=== PATIENT | male | born 1945 | race Caucasian/White ===

== ENCOUNTER 2019-03-30 16:03 | Inpatient (IN) | payer MEDICARE, OTHER ==
[2019-03-30] MEDS ORDERED: CLOPIDOGREL75 MG PO (18:31)
[2019-03-30] MEDS ORDERED: ALDACTONE25 M1 PO (18:32)
[2019-03-30] MEDS ORDERED: TOPROL XL25 MG PO (18:32)
[2019-03-30] MEDS ORDERED: KENALOG 0.1%80 GM T (18:33)
[2019-03-30] MEDS ORDERED: LIPITOR40 MG PO (18:34)
[2019-03-30] MEDS ORDERED: COMBIVENT RESPIM4 GM INH (18:34)
[2019-03-30] MEDS ORDERED: ASPIRIN CHEWABL81 MG PO (18:34)
[2019-03-30] MEDS ORDERED: CETIRIZINE10 MG PO (18:35)
[2019-03-30] MEDS ORDERED: CYCLOBENZAPRINE10 MG PO (18:36)
[2019-03-30] MEDS ORDERED: DOXEPIN HCL100 MG PO (18:36)
[2019-03-30] MEDS ORDERED: ENALAPRIL20 MG PO (18:37)
[2019-03-30] MEDS ORDERED: ORPHENADRINE C100 M1 PO (18:38)
[2019-03-30] MEDS ORDERED: ZETIA10 MG PO (18:38)
[2019-03-30] MEDS ORDERED: SENNA8.6 MG PO (18:39)
[2019-03-30] MEDS ORDERED: RANITIDINE HCL150 M1 PO (18:39)
[2019-03-30] MEDS ORDERED: K2 PLUS D3 TAB1 EACH PO (18:40)
[2019-03-30] MEDS ORDERED: MULTIVITAMINS1 EAC5 PO (18:40)
[2019-03-30 21:07] VITALS: BP 184/81
[2019-03-30 22:00] VITALS: BP 184/81
--- NOTE | 2019-03-30 22:00 | NUR ---
DR ASHER NOTFIED OF ADMISSION. A FEW MEDICATIONS STARTED TONIGHT TO ASSIST CLIENT
--- NOTE | 2019-03-30 22:15 | NUR ---
OLIVIA STRINGER a 74 year old M admitted via stretcher from the OTHER as a voluntary admission. Arrived on unit at 2054. ALLERGIES: ADHESIVE TAPE. Vital signs are: [id number] [phone]/81. The client signed the following forms with stated understanding: Authorization For The Release of Medical Information, Clothing List, Consent to Voluntary Admission and Hospitalization, Consent and Release Forms/Receipt of Rights, Acknowledgement of Advance Directive Information, Behavioral Health Consent Form, and Informed Consent of Medications. Admitted under the services of Dr. DAPHNE THOMAS,[facility]. A search was conducted and hazardous articles were removed. Client was oriented to the unit. EUGENIO JARAMILLO
--- NOTE | 2019-03-31 05:56 | NUR ---
PT HAS SLEPT PAST 0115.
[2019-03-31 06:30] LABS: BASO # 0.1 10*3/uL (0.0-0.1); EOS # 0.5 10*3/uL (0.0-0.4); HEMATOCRIT 40.5 % (42.0-52.0); HEMOGLOBIN 13.4 g/dl (14.0-18.0); LYMPH # 1.5 10*3/uL (1.3-4.4); LYMPH % 14.1 % (27.0-41.0); MEAN CELL VOLUME 93.1 fl (80.0-94.0); MEAN CORPUSCULAR HGB 30.8 pg (27.0-31.0); MEAN CORPUSCULAR HGB CONC 33.1 g/dl (33.0-37.0); MEAN PLATELET VOLUME 9.5 fl (9.6-12.3); MONO % 9.9 % (3.0-9.0); NEUT # 7.3 10*3/uL (2.3-7.9); NEUT % 69.6 % (47.0-73.0); PLATELET COUNT AUTOMATED 184 10*3/uL (130-400); RED BLOOD COUNT 4.35 10*6/uL (4.50-5.90); RED CELL DISTRI WIDTH 13.2 % (0-14.5); WHITE BLOOD COUNT 10.5 10*3/uL (4.8-10.8)
[2019-03-31 07:01] LABS: ALBUMIN 3.3 gm/dl (3.1-4.5); ALKALINE PHOSPHATASE 70 U/L (45-117); BUN 15 mg/dl (7-24); CHLORIDE 107 mmol/L (98-107); CHOLESTEROL 144 mg/dL (<200); CREATININE 1.09 mg/dL (0.70-1.30); HDL CHOLESTEROL 58 mg/dl (40-60); LDL CHOLESTEROL 58 mg/dL (9-159); POTASSIUM 3.4 mmol/L (3.5-5.1); SGOT/AST 16 IU/L (3-35); SGPT/ALT 24 U/L (12-78); SODIUM 143 mmol/L (136-145); TOTAL PROTEIN 6.5 gm/dL (6.4-8.2); TRIGLYCERIDES 139 mg/dl (<150); VLDL CHOLESTEROL 28 mg/dL (6-40)
[2019-03-31 07:40] VITALS: BP 155/76
[2019-03-31 08:24] LABS: VITAMIN D, 25-HYDROXY 38.4 ng/mL (30-100)
--- NOTE | 2019-03-31 08:45 | NUR ---
kayley garcia np, made aware of medical meds needing reviewed.
--- NOTE | 2019-03-31 09:50 | NUR ---
PHYSICAL THERAPY Screen received spoke with nurse Ann, who states pt is up ambulating throughout the unit and having no balance/safety/functional issues at this time. Please consult PT if pt has a change in status or decline from present functional status, thank you. Britt Pickett PT
--- NOTE | 2019-03-31 11:52 | NUR ---
ASSESSMENT SPENT TIME ASSESSING PT. PT WAS COOPERATIVE AND CALM. PT ENJOYS READING AND WORDSEARCHS AND WILL BE ENCOURAGED TO ATTEND GROUP THERAPY.
--- NOTE | 2019-03-31 15:42 | NUR ---
PM GROUP PT ATTENDED AFTERNOON GROUP THERAPY AND PARTICIPATED BY SOCIALIZING WITH A PEER WHOM HE KNEW FROM WORK. PT EXPRESSED NO SUICIDAL IDEATIONS WHILE IN GROUP.
--- NOTE | 2019-03-31 15:47 | NUR ---
Nursing screen received and chart reviewed. Per discussion with nursing, patient is independently ambulating throughout U and is independent with self-care. No further OT indicated at this time. Thank you. Loly Miller, OTR/L
[2019-03-31 19:52] VITALS: BP 160/86
--- NOTE | 2019-03-31 20:50 | NUR ---
EVENING/LEISURE SKILLS PT IN ATTENDANCE BUT CHOSE NOT TO PARTICIPATE IN ANY ACTIVITY. AT TIMES THIS STAFF SAW PT ROLLING EYES AT THIS STAFF AND ACTIVITY'S OFFERED. THIS STAFF OFFERED ALTERNATE ACTIVITY BUT PT CHOSE NOT TO PARTICIPATE. PT ATE SNACK AND WENT TO LAY DOWN. PT WILL CONTINUE TO BE ENCOURAGED TO ATTEND AND PARTICIPATE IN FUTURE GROUP SESSIONS TO BEST OF PT ABILITY.
--- NOTE | 2019-04-01 03:28 | NUR ---
P: SUICIDAL IDEATIONS I: SPOKE WITH PT THIS EVENING IN REFERENCE TO THOUGHT PROCESS AND WHY HE CONSIDERED IT AN OPTION. DISCUSED WITH PT HOW AT A YOUNG AGE HE WAS EXPECTED TO BE WILLING TO FOR HIS COUNTRY, THAT LEAVES MANY VETERANS VULNERABLE LATER IN LIFE WHEN CONTROL OF THEIR SITUATION IS LOST. ENCOURAGED PT TO REVIEW LIFE AND REALIZE HE IS NO LONGER EXPENDABLE, THAT HIS AND FAMILY NEED AND WANT HIM TO BE THERE. R: PT STATED HE IS FRUSTRATED NOONE LISTENS TO HIM BECAUSE HE DOES GET CONFUSED SOMETIMES, PT STATED THAT HE JUST WANTS TO SELL THE HOUSE TO THE NEIGHBOR AND GET OUT. STATES HE IS NO LONGER HAVING NEGATIVE THOUGHTS AND IT WAS JUST BECAUSE HE WAS MAD P: ENCOURAGE PT TO TALK TO STAFF, CONTRACT FOR SAFETY, EDUCATE ON MEDICATIONS, COPING SKILLS, PROBLEMS SOLVING. PT READING IN HIS ROOM THIS EVENING, PLEASANT COOPERATIVE, MEDICATION COMPLIANT, NO SI/HI OR DELUSIONS PRESENT
[2019-04-01 07:04] LABS: BUN 18 mg/dl (7-24); CHLORIDE 106 mmol/L (98-107); CREATININE 0.96 mg/dL (0.70-1.30); POTASSIUM 3.3 mmol/L (3.5-5.1); SODIUM 141 mmol/L (136-145)
--- NOTE | 2019-04-01 08:00 | NUR ---
Treatment Plan meeting was held with Dr. Herring, DANYEL Alston, RN, AT, PUMP SERVICER HELPER-S and Logistics Program Manager in attendance. Plan for discharge Next week. Pt. came from Home and will return home at discharge.
[2019-04-01 08:19] VITALS: BP 163/86
--- NOTE | 2019-04-01 11:48 | NUR ---
AM GROUP PT WAS PRESENT AT THE START OF GROUP THERAPY BUT BEGAN TO LEAVE SOON I BEGAN. PT WAS ENCOURAGED TO STAY BUT CHOSE TO LEAVE. PT DID NOT RETURN.
--- NOTE | 2019-04-01 12:04 | NUR ---
Met with pt individually this AM. Explored pt's self-percetion of the power he has over his life and his home situation. Currently, pt feels powerless to make changes to his home life. He did voice some positives about his nephew living with him. Pt did share that he has always been "easy going" and that he feels that it is just easier to go along with what his wants. Asked pt to explain what he believes would happen if he demanded that his nephew and [id number] move out from his home. Pt stated that he knew his would cry and that he doesn't want to do that. When asked what changes pt would make if he had the power to do so in his life, pt responded, "Simple things. I want power over the washer and dryer. He (nephew) leaves clothes in the washer and dryer and then goes away for a day. I want to do my laundry when I want to." Discussed that one cannot control another but that one does have the power over reacting to other's behaviors. Discussed ways in which pt can react differently to his current life situation. Discussed unhealthy vs healthy ways in which to cope with life. Began discussing healthy coping skills. Discussed removing the guns from pt's home. Pt voiced understanding. Pt stated that he planned on selling one of them.
--- NOTE | 2019-04-01 12:51 | NUR ---
PT PLEASANT AND COOPERATIVE WITH CARE, GOOD APPETITE, COMPLIANT WITH MEDICATIONS PT DENIES SI AT THIS TIME, BUT DOES STATE THAT HES NOT HAVING SI BECAUSE HE IS HERE AND AWAY FROM HIS AND HER NEPHEW AT THIS TIME, HE STATES THAT HES UNSURE IF HIS SI WILL RETURN WHEN HE RETURNS HOMES AND IS AROUND HIS WIFES NEPHEW, BUT DOES BELIEVE "THEY'LL PROBABLY RETURN UNLESS HE LEAVES".
--- NOTE | 2019-04-01 15:52 | NUR ---
PM GROUP PT DID NOT ATTEND AFTERNOON GROUP THERAPY. PT STAYED IN HIS ROOM
[2019-04-01 20:05] VITALS: BP 150/82
--- NOTE | 2019-04-01 20:38 | NUR ---
EVENING GROUP/LEISURE SKILLS PT IN ATTENDANCE AND PARTICIPATED BY WATCHING MOVIE AND SOCIALIZING WITH PEERS. PT PLEASANT WITH NO S.I. EXPRESSED AT THIS TIME. PT WILL CONTINUE TO ATTEND AND PARTICIPATE IN FUTURE [facility] SESSIONS TO BEST OF ABILITY.
--- NOTE | 2019-04-02 01:01 | NUR ---
NO ADVERSE BEHAVIORS NOTED. PT ALERT AND ORIENTED X4. PT CALM, COOPERATIVE, AND INTERACTIVE. MEDICATION COMPLIANT WITHOUT DIFFICULTY AFTER REVIEW. PT DENIES SI/HI, HALLUCINATIONS, OR PAIN. NO PARANOIA/DELUSIONS NOTED. NO PHYSICAL COMPLAINTS VOICED. PT AMBULATORY WITH A STEADY GAIT. INDEPENDENT IN ADLS, CONTINENT OF BOWEL AND BLADDER. PT RESTING QUIETLY AT THIS TIME, RESPIRATIONS EASY AND REGULAR, NO SIGNS OR SYMPTOMS OF DISTRESS NOTED.
--- NOTE | 2019-04-02 03:01 | NUR ---
24 HOUR CHART CHECK COMPLETED.
--- NOTE | 2019-04-02 05:36 | NUR ---
PATIENT OBSERVED ON Q 15 MIN CHECKS TO HAVE SLEPT APPROX 7 HOURS UNINTERRUPTED THROUGHOUT THEN NIGHT. NO SIGNS OR SYMPTOMS OF DISTRESS NOTED.
--- NOTE | 2019-04-02 08:00 | NUR ---
Treatment plan meeting was held with Dr. Herring, DANYEL Alston, RN, AT, LIQUID HYDROGEN PLANT OPERATOR-S and Vegetable I Farmworker. Plan for discharge Sunday with return home with Follow up arranged.
[2019-04-02 08:06] VITALS: BP 125/86
--- NOTE | 2019-04-02 09:04 | NUR ---
PATIENT COMPLAINING OF LOWER BACK PAIN 07/12. PRN TYLENOL 650MG AND FLEXERIL 10MG GIVEN PO.
--- NOTE | 2019-04-02 10:04 | NUR ---
NO FURTHER COMPLAINTS OF PAIN, PRN TYLENOL AND FLEXERIL EFFECTIVE.
--- NOTE | 2019-04-02 10:05 | NUR ---
P: DEPRESSED MOOD, STATES HE FEELS "SAD" I: ONE ON ONE FOR EMOTIONAL SUPPORT PROVIDED R: EFFECTIVE. PATIENT IS ALERT AND ORIENTED TO PERSON, PLACE, TIME AND SITUATION; ABLE TO VOICE NEEDS. MOOD IS DEPRESSED. DENIES ANY HALLUCINATIONS, DELUSIONS, HI/SI OR PAIN. MEDICATION COMPLAINT WITH EDUCATION PROVIDED. Q 15 MINTUE SAFETY CHECKS MAINTIANED. PATIENT ASSESSED FOR RASH ON BACK/NECK FROM WOUND NURSE AND MILY MCCONNELL CNP. NEW ORDERS IN PLACE. PATIENT IS INDEPENDENT WITH ACTIVITIES OF DAILY LIVING, CONTINENT OF BOWEL AND BLADDER. SET UP FOR MEALS, INTAKES ARE GOOD WITH ADEQUATE FLUIDS. INTERACTIVE WITH STAFF AND OTHER PATIENTS. PARTICIPATES IN GROUP SESSSION. P: CONTINUE TO MONITOR FOR SUCIDIAL IDEATION AND MOOD. PROVIDE ONE ON ONE FOR EMOTIONAL SUPPORT, CONTRACT FOR SAFETY NEEDED.
--- NOTE | 2019-04-02 11:48 | NUR ---
AM GROUP/EXERCISE AND BRAIN GAMES PT ATTENDED MORNING GROUP THERAPY AND PARTICIPATED IN ALL ACTIVITIES. PT WAS QUIET BUT ENGAGED. PT EXPRESSED NO SUICIDAL IDEATIONS WHILE IN GROUP.
--- NOTE | 2019-04-02 12:19 | NUR ---
PRN BENADRYL 25MG GIVEN PO FOR COMPLAINTS OF BACK ITCHING.
--- NOTE | 2019-04-02 15:04 | NUR ---
Spoke with pt's Joy by phone. Joy shared that she and pt have not have a good marriage for over 20 years. Joy states that they basically tolerate each other and live apart in the same house. Discussed the guns that pt has in the home and requested that the guns be removed from the house. Joy is in agreement of this and stated that she will speak to her sister about taking the guns to her house. Joy's perception of Jaden, her nephew who resides in the home, is that he is very helpful by cooking, cleaning, and doing the yardwork. Joy stated that if Jaden did not live with them, she would probably not be able to remain at home due to her own physical limitations. Joy also stated that she believes that pt has never healed from his experiences in [place] and that contributes to their home situation.
--- NOTE | 2019-04-02 15:44 | NUR ---
PM GROUP/WATERCOLORS AND MUSIC PT ATTENDED AFTERNOON GROUP THERAPY AND PARTICIPATED IN ALL ACTIVITIES. PT WAS TALKATIVE BUT ON TASK. PT EXPRESSED NO SUICIDAL IDEATIONS WHILE IN GROUP.
[2019-04-02 19:45] VITALS: BP 151/63
--- NOTE | 2019-04-02 20:16 | NUR ---
24 HR chart check completed.
--- NOTE | 2019-04-02 22:17 | NUR ---
PT RESTED IN BED THIS EVENING & SLEPT UNTIL 2100. EASILY AWAKENED. COMPLIANT WITH ALL MEDICATIONS. ALERT & ORIENTED X 4. STATED HE IS FEELING BETTER, DENIES SUICIDAL FEELINGS. AMBULATES INDEPENDENTLY. STABLE MOOD. REFUSED SNACK THIS EVENING. CONTINUE TO MONITOR & ASSIST WHEN NEEDED.
--- NOTE | 2019-04-03 05:37 | NUR ---
SLEPT PAST 2229
[2019-04-03 07:49] VITALS: BP 137/82
--- NOTE | 2019-04-03 08:00 | NUR ---
Treatment Plan meeting was held with Dr. Herring RN, AT and Oracle Consultant in attendance. Plan for discharge Sunday. Pt. will return home at discharge.
--- NOTE | 2019-04-03 08:00 | NUR ---
Patient in dining room sitting quietly with no c/o discomfort. Respirations easy and regular. Vital signs stable. No overt distress. VASHTI SANFORD
--- NOTE | 2019-04-03 11:51 | NUR ---
AM GROUP PT DID NOT ATTEND MORNING GROUP THERAPY. PT WAS IN HIS ROOM RESTING.
--- NOTE | 2019-04-03 14:30 | NUR ---
DR. Jackie WICK AND TEAM ON FLOOR TO SEE PT AT THIS TIME.
--- NOTE | 2019-04-03 15:13 | NUR ---
PT STATES HE WAS SAD THIS MORNING. PT ENCOURAGED TO ELABORATE ON HIS FEELINGS. PROVIDED WITH EMOTIONAL SUPPORT. PT STATES "WELL THERE WAS THIS ONE STAFF MEMBER THAT WAS HERE, AND HE JUMPED UP AND DOWN AND MADE THE FLOOR VIBRATE. IT THREW MY BACK OUT. HE IS A HEAVY WALKER TOO". PT PRESENTED WITH REALITY AND PROVIDED WITH EDUCATION. ENCOURAGED TO MOVE SELF. WILL CONTINUE TO PRESENT REALITY. WILL CONTINUE TO ENCOURAGE PT TO VERBALIZE THOUGHT PROCESSES. WILL ENCOURAGE GROUP PARTICIPATION FOR SOCIALIZATION AND SUPPORT. Q15 MIN MONITORING FOR SAFETY.
--- NOTE | 2019-04-03 15:42 | NUR ---
PM GROUP PT DID NOT ATTEND AFTERNOON GROUP THERAPY. PT STAYED IN HIS ROOM NAPPING
[2019-04-03 19:57] VITALS: BP 127/80
--- NOTE | 2019-04-03 23:49 | NUR ---
P-ISOLATIVE I-REDIRECTION WITH 1:1 THERAPEUTIC INTERVENTIONS AND PRESENT REALTIY. EDUCATE AND ENCOURAGE MEDICATION COMPLIANCE R-PATIENT MEDICATION COMPLIANT WITH HS MEDICATIONS. PATIENT PROVIDED NOURISHMENT AT HS AND PROVIDED FLUIDS. PATIENT ISOLATIVE TO ROOM THIS SHIFT WITH LIMITED INTERACTION WITH PEERS. PATIENT AMBULATING ON UNIT WITH STEADY GAIT. PATIENT WITH NO HALLUCINATIONS OR DELUSIONS. PATIENT WITH NO SUICIDAL OR HOMICIDAL IDEATIONS. P-CONTINUE TO ENCOURAGE MEDICATION COMPLAINCE, CONTINUE TO PRESENT REALITY, ENCOURAGE GROUP THERAPY WHILE AWAKE
--- NOTE | 2019-04-04 06:04 | NUR ---
PATIENT SLEPT 8 HOURS OF INTERRUPTED SLEEP THROUGHOUT SHIFT. Q 15 MINUTE CHECKS MAINTAINED. 24 HR chart check completed.
[2019-04-04 07:42] VITALS: BP 152/84
--- NOTE | 2019-04-04 10:32 | NUR ---
PT REQUESTING FLEXERIL FOR BACK PAIN. PRN FLEXERIL 10MG ADMINISTERED AT THIS TIME PER PRN ORDER.
--- NOTE | 2019-04-04 11:45 | NUR ---
AM GROUP/BEADING PT DID NOT ATTEND MORNING GROUP THERAPY. PT STAYED IN HIS ROOM
--- NOTE | 2019-04-04 13:12 | NUR ---
PT CONTINUES TO REPORT NO BM SINCE 03/30. PRN MILK OF MAGNESIA GIVEN PER ORDER. BOWEL SOUNDS ACTIVE X4. NO TENDERNESS OR GUARDING UPON PALPATION. ABDOMEN SOFT, NONDISTENDED. PT DOES STATE PRN FLEXERIL SOMEWHAT EFFECTIVE AT THIS TIME.
--- NOTE | 2019-04-04 14:18 | NUR ---
P: ISOLATIVE AND WITHDRAWN; PATIENT SPENDING MOER TIME IN BEDROOM. I: ONE ON ONE FOR EMTTIONAL SUPPORT, ENCOURAGE PATIENT TO ATTEND GROUP SESSION. R: PATIENT INTERACTIVE [facility] STAFF; PATIENT IS ALERT AND ORIENTED TO PERSON, PLACE, TIME AND SITUATION; ABLE TO VOICE NEEDS. MOOD DEPRESSED. DENIES ANY HALLUCINATIONS, DELUSIONS, HI/SI OR PAIN. MEDICATION COMPLAINT. Q 15 MINUTE SAFETY CHECKS MAINTAINED. INDEPENDENT WITH ACTIVITIES OF DAILY LIVING, CONTINENT OF BOWEL AND BLADDER. SET UP FOR MEALS, INTAKES ARE GOOD WITH ADEQUATE FLUIDS. AMBULATORY WITH STEADY GAIT. P: CONTINUE TO MONITOR FOR SUICIDAL IDEATIONS AND MOOD. PROVIDE ONE ON ONE FOR EMOTIONAL SUPPORT, ENCOURAGE PATIENT TO ATTEND GROUP SESSION, CONTRACT FOR SAFETY NEEDED.
--- NOTE | 2019-04-04 15:48 | NUR ---
PM GROUP/MOVIE PT CHOSE NOT TO ATTEND AFTERNOON GROUP THERAPY. PT STAYED IN HIS ROOM
[2019-04-04 19:09] VITALS: BP 134/73
--- NOTE | 2019-04-05 00:13 | NUR ---
P- ISOLATIVE TO ROOM, PT IN BED AT START OF SHIFT THIS DATE, WILL INTERACT WITH STAFF, HOWEVER; MINIMAL PEER INTERACTIONS NOTED. DENIES FEELING DEPRESSED. DENIES SUICIDAL IDEATIONS. I- ORIENTATION, MOOD AND BEHAVIOR ASSESSED. ASSESSED PT FOR SI/HI, INTENT OR PLAN. ASSESSED PT FOR S/S HALLUCINATIONS, PARANOIA AND/OR DELUSIONS. HS MEDICATIONS GIVEN ORDERED. FALL RISK PRECAUTIONS MAINTAINED. REST ENCOURAGED. R- PT IS ALERT AND ORIENTED X4. PT IN BED AT START OF SHIFT, UPON APPROACH FOR HS MED PASS PT IS LYING IN BED AWAKE. ISOLATIVE TO ROOM. MOOD STABLE, PT DENIES FEELING DEPRESSED. AFFECT APPROPRIATE. PT DENIES SI/HI, INTENT OR PLAN. PT DENIES HALLUCINATIONS, NO RESPONSE TO INTERNAL STIMULI NOTED. NO PARANOIA OR DELUSIONS NOTED. PT NOTED TO BE SLEEPING QUIETLY IN BED WITH EYES CLOSED SINCE APPROXIMATELY 9PM. RESPS EASY AND EVEN ON ROOM AIR. NO DISTRESS NOTED. P- PLAN TO CONTINUE CURRENT TX, CONTINUE TO MONITOR MOOD AND BEHAVIORS, PROVIDE APPROPRIATE REORIENTATION, REDIRECTION AND 1:1 NEEDED.
[2019-04-05 07:24] VITALS: BP 129/43
--- NOTE | 2019-04-05 11:35 | NUR ---
MILY MCCONNELL STUDIO SALES ASSOCIATE ON UNIT TO ASSESS PT, UPDATE PROVIDED.
--- NOTE | 2019-04-05 12:01 | NUR ---
AM GROUP/EXERCISE/MUSIC/LEISURE PT IN ATTENDANCE AND PARTICIPATED IN AL;L GROUP ACTIVITY. PT PLEASANT AND ON TASK WITH NO S.I. EXPRESSED AT THIS TIME. PT WILL CONTINUE TO ATTEND AND PARTICIPATE IN FUTURE GROUP SESSIONS TO BEST OF PT ABILITY.
--- NOTE | 2019-04-05 12:38 | NUR ---
PT C/O BACK PAIN 09/11, PT MEDICATED WITH FLEXERIL PER ORDERS. WILL CONTINUE TO MONITOR.
--- NOTE | 2019-04-05 13:30 | NUR ---
WHEN ASKED IF THE MEDICATION HELPED HIS BACK PAIN PT STATED "IT IS HELPING A LITTLE, WHEN IM AT HOME I USUALLY LAY DOWN" PT SHOWERED AND THEN WENT AND LAID DOWN. WILL CONTIUE TO MONITOR.
--- NOTE | 2019-04-05 15:22 | NUR ---
P: PT ISOALTIVE TO ROOM AND SELF. PT WILL INTERACT WITH STAFF, NO INTERACTION NOTED WITH PEERS. PT REFUSED TO PARTICIPATE IN AFTERNOON GROUP. PT MOOD IS DEPRESSED. PT IRRITABLE WITH STAFF AT TIMES. I: PROVIDE EMOTIONAL SUPPORT AND 1:1 FOR PT TO VOICE FEELINGS, ENCOURAGE GROUP PARTICIPATION AND SOCIALIZATION R: PT ALERT TO PERSON, PLACE, TIME AND SITUATION. PT MED COMPLIANT WITHOUT DIFFICULTY, MED EDUCATION PROVIDED. PT CALM, MOOD REMAINS DEPRESSED. PT CONTINUES TO REFUSE TO PARTICIPATE IN AFTERNOON GROUP. NO HALLUCINATIONS OR DELUSIONS NOTED. PT DENIES ANY SUICIDAL THOUGHTS AT THIS TIME. PT AMBULATORY THROUGHOUT UNIT, GAIT STEADY. PT CONTINENT OF BOWEL AND BLADDER. PT SHOWERED THIS SHIFT. P: MONITOR PT BEHAVIORS ON Q15 MIN SAFETY CHECKS, ENCOURAGE MED COMPLIANCE AND PROVIDE MED EDUCATION, PROVIDE EMOTIONAL SUPPORT AND 1:1 FOR PT TO VOICE FEELINGS, ENCOURAGE GROUP PARTICIPATION AND SOCIALIZATION.
--- NOTE | 2019-04-05 16:00 | NUR ---
PM GROUP/MOVIE/LEISURE PT IN SHOWER START OF GROUP. PT DID NOT END UP COMING DOWN TO GROUP AT THIS TIME. PT WILL CONTINUE TO BE ENCOURAGED TO ATTEND AN DPARTICIPATE IN FUTURE GROUP SESSIONS TO BEST OF PT ABILITY.
[2019-04-05 20:00] VITALS: BP 133/66
--- NOTE | 2019-04-05 22:29 | NUR ---
P-ISOLATIVE I-REDIRECTION WITH 1:1 THERAPEUTIC INTERVENTIONS AND PRESENT REALTIY. EDUCATE AND ENCOURAGE MEDICATION COMPLIANCE R-PATIENT MEDICATION COMPLIANT WITH HS MEDICATIONS. PATIENT PROVIDED NOURISHMENT AT HS AND PROVIDED FLUIDS. PATIENT ISOLATIVE IN DINING AREA WITH LIMITED INTERACTION WITH PEERS. PATIENT AMBULATING ON UNIT WITH STEADY GAIT. PATIENT WITH NO HALLUCINATIONS OR DELUSIONS. PATIENT WITH NO SUICIDAL OR HOMICIDAL IDEATIONS. P-CONTINUE TO ENCOURAGE MEDICATION COMPLAINCE, CONTINUE TO PRESENT REALITY, ENCOURAGE GROUP THERAPY WHILE AWAKE
--- NOTE | 2019-04-06 06:16 | NUR ---
PATIENT SLEPT 8 HOURS OF UNTERRUPTED SLEEP THROUGHOUT SHIFT. Q 15 MINUTE CHECKS MAINTAINED. 24 HR chart check completed.
[2019-04-06 07:53] VITALS: BP 123/60
--- NOTE | 2019-04-06 08:24 | NUR ---
PT C/O BACK PAIN AND SORENESS, PT MEDICATED WITH TYLENOL 650 MG AND FLEXERIL PER ORDERS. WILL CONTINUE TO MONITOR.
--- NOTE | 2019-04-06 09:34 | NUR ---
MILY MCCONNELL RAILROAD SIGNAL AND SWITCH OPERATOR ON UNIT TO ASSESS PT, UPDATE PROVIDED.
--- NOTE | 2019-04-06 09:45 | NUR ---
P: PT ISOLATIVE TO SELF THROUGHOUT THE DAY, WILL NOT INTERACT WITH PEERS, INTERACTS WITH STAFF WHEN SPOKEN TO. PT MOOD IS DEPRESSED. I: PROVIDE EMOTIONAL SUPPORT AND 1:1 FOR PT TO VOICE FEELNGS, ENCOURAGE GROUP PARTICIPATION AND SOCIALIZATION. R: PT ALERT TO PERSON, PLACE, TIME AND SITUATION. PT MED COMPLIANT WITHOUT DIFFICULTY, MED EDUCATION PROVIDED. PT CALM. PT MOOD REMAINS DEPRESSED. PT CONTINUE TO INTERACT WITH STAFF ONLY, NO INTERACTION NOTED WITH PEERS. PT DENIES ANY SUICIDAL/HOMICIDAL THOUGHTS. NO HALLUCINATIONS OR DELUSIONS NOTED. PT AMBULATORY THROUGHOUT UNIT, GAIT STEADY. PT CONTINENT OF BOWEL AND BLADDER. P: MONITOR PT BEHAVIORS ON Q15 MIN SAFETY CHECKS, ENCOURAGE MED COMPLIANCE AND PROVIDE MED EDUCATION, PROVIDE EMOTIONAL SUPPORT AND 1:1 FOR PT TO VOICE FEELINGS, ENCOURAGE GROUP PARTICIPATION AND SOCIALIZATION.
--- NOTE | 2019-04-06 12:59 | NUR ---
AM GROUP/MUSIC/EXERCISE/COLOR BY NUMBER PT IN ATTENDANCE AND PARTICIPATED IN ALL GROUP ACTIVITY. PT QUIET TO SELF WORKING ON COLOR BY NUMBER. PT EXPRESSED NO S.I. AT THIS TIME. PT WILL CONTINUE TO ATTEND AND PARTICIPATE IN [facility] SESSIOSN TO BEST OF PT ABILITY.
[2019-04-06 20:11] VITALS: BP 118/72
--- NOTE | 2019-04-06 21:55 | NUR ---
Patient alert and oriented to person,place,time and situation. Mood depressed. Patient is isolative in diningroom with interaction with staff only and very limited interaction with other patients. Patient denies SI/HI at this time. No s/s of any responding to internal stimuli at this time. Patient compliant with HS medications without any difficulty. Provided 1:1 for therapeutic communication and emotional support. Patient ambulatory in hallway with steady gait unassisted. Plan to continue to encourage medication compliance. Also continue to provide emotional support and therapeutic communication. Will continue to monitor moods/behaviors. See [facility] flowsheet for further documentation.
--- NOTE | 2019-04-07 00:15 | NUR ---
24 HR chart check completed.
--- NOTE | 2019-04-07 05:39 | NUR ---
Patient slept approx. 7 hours throughout shift. Q 15 minute safety checks continued and maintained.
[2019-04-07 07:57] VITALS: BP 136/70
--- NOTE | 2019-04-07 08:00 | NUR ---
Treatment Plan meeting was held with Dr. Herring, DANYEL Alston, RN, AT, LABOR TRAINER-S and Academic Dean in attendance. Plan for discharge Sunday with Pt. to return home and follow up appointments arranged.
--- NOTE | 2019-04-07 08:00 | NUR ---
Patient resting quietly with no c/o discomfort. Respirations easy and regular. Vital signs stable. No overt distress. DONA GRANDA
--- NOTE | 2019-04-07 08:30 | NUR ---
AND JHONNY PMHNP-BC ON UNIT TO SEE PT AT THIS TIME, UPDATE GIVEN.
--- NOTE | 2019-04-07 10:13 | NUR ---
Spoke with pt's Joy who confirmed that all guns have been removed from pt's home. Joy stated that she knows pt will not be happy about this. Explained to Joy that this sports book writer spoke with pt in regards to the removal of the guns and pt voiced understanding. Joy then shared that she is considering the pt because they have not had a true marriage for over 20 years. Joy places the blame on pt's experiences in the [place]. Offered to Joy that pt will be starting counseling through the [facility] and that hopefully will make positive changes in pt. Asked Joy about pt sharing that Joy's nephew Jaden is growing marijuana plants in the home's basement. Joy denies that stating that Jaden has garden seeds planted and tomato plants growing. Joy added that Jaden is in recovery and would not do such a thing.
--- NOTE | 2019-04-07 11:38 | NUR ---
Individual session with pt this AM. Discussed coping strategies for when pt returns home. Pt stated that he plans on taking a drive or reading a book in his room as his coping mechanisms. Discussed the inability to control another's actions. Discussed healing from trauma and regaining a sense of control over life. Pt spoke further about his experiences in [place] and also when he was seriously ill at the age of 14. Discussed discharge. Educated pt about IOPs and he voiced interest in attending.
--- NOTE | 2019-04-07 14:00 | NUR ---
Jorge TRAMPOLINE TEAM COACH on unit to see pt at this time.
--- NOTE | 2019-04-07 14:32 | NUR ---
PRN FLEXERIL 10MG PO GIVEN AT THIS TIME PER PT REQUEST FOR C/O BACK PAIN. WILL MONITOR FOR EFFECTIVENESS.
--- NOTE | 2019-04-07 15:45 | NUR ---
FLEXERIL EFFECTIVE. PT VOICES NO FURTHER COMPLAINTS.
--- NOTE | 2019-04-07 17:14 | NUR ---
P- NO ISOLATIVE BEHAVIORS NOTED THIS SHIFT. PT OUT IN DAY ROOM INTERACTING APPROPRIATELY WITH STAFF AND PEERS. MOOD STABLE. APPROPRIATE AFFECT. PT DENIES SI/HI, INTENT OR PLAN. I- ORIENTATION, MOOD AND BEHAVIORS ASSESSED. ASSESSED PT FOR SI/HI, INTENT OR PLAN. ASSESSED PT FOR S/S HALLUCINATIONS, PARANOIA AND/OR DELUSIONS. MEDICATIONS ADMINISTERED PER PHYSICIAN'S ORDERS. ASSISTANCE WITH ADL CARE PROVIDED NEEDED. ENCOURAGED PT TO ATTEND AND PARTICIPATE IN [facility] GROUPS AND ACTIVITIES. R- PT IS ALERT AND ORIENTED X4. MEMORY INTACT. RESPS EASY AND EVEN ON ROOM AIR. MOOD STABLE, AFFECT BROAD RANGE AND APPROPRIATE. SPEECH IS WNL AND COHERENT, ABLE TO MAKE NEEDS KNOWN WITHOUT DIFFICULTY. PT DENIES SI/HI, INTENT OR PLAN. PT DENIES HALLUCINATIONS, NO RESPONSE TO INTERNAL STIMULI NOTED. NO PARANOIA OR DELUSIONS NOTED. PT IS CALM, PLEASANT AND COOPERATIVE. MED COMPLIANT WITHOUT DIFFICULTY. PT NOT EXHIBITING ANY ISOLATIVE BEHAVIORS THIS SHIFT, PT INTERACTING APPROPRIATELY WITH STAFF AND PEERS. NO DISTRESS NOTED. P- PLAN TO CONTINUE CURRENT TREATMENT, CONTINUE TO MONITOR MOOD AND BEHAVIORS, PROVIDE APPROPRIATE REORIENTATION, REDIRECTION AND 1:1 NEEDED. CONTINUE TO ENCOURAGE MEDICATION COMPLIANCE WELL GROUP ATTENDANCE AND PARTICIPATION.
--- NOTE | 2019-04-07 17:57 | NUR ---
PM GROUP/EXERCISE/BEADING/LEISURE PT IN ATTENDNACE AN DPARTICIPATED. PT DID EXERCISES AND WORKED ON COLOR BY NUMBER. PT PLEAANT AND ON TASK WITH NO S.I. EXPRESSED AT THIS TIME. PT WILL CONTINUE TO ATTEND AND PARTICIPATE IN FUTURE GROUP SESSIONS.
[2019-04-07 20:00] VITALS: BP 115/90
--- NOTE | 2019-04-07 20:51 | NUR ---
EVENING/STORY PT ATTENDED AND PARTICIPATED IN DISCUSSION. PT PLEASANT AND ON TASK WITH NO S.I. EXPRESSED. PT WILL CONTINUE TO ATTEND AN DPARTICIPATE IN FUTURE GROUP SESSIONS TO BEST OF PT ABILITY.
--- NOTE | 2019-04-08 04:33 | NUR ---
PT MEDICATION COMPLIANT, LAUGHING/JOKING WITH STAFF AND PEERS. SMILES WHEN SPOKEN TO WITH APPROPRIATE EYE CONTACT. AWARENESS OF MEDICATIONS, NO SI/HI OR DELUSIONS CONTINUE TO MONITOR 15 MIN CHECKS AT THIS TIME
--- NOTE | 2019-04-08 05:30 | NUR ---
PT SLEPT 6+ HOURS
[2019-04-08] MEDS ORDERED: FANAPT8 MG PO (07:19)
[2019-04-08] MEDS ORDERED: DOXEPIN HCL25 MG PO (07:19)
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
--- NOTE | 2019-04-08 08:00 | NUR ---
Treatment Plan meeting was held with DANYEL Alston, RN, AT, [employer] and Linux Server Engineer. Plan for discharge /Sunday. Pt. will return to [facility] at discharge.
[2019-04-08 08:01] VITALS: BP 113/58
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
--- NOTE | 2019-04-08 11:44 | NUR ---
AM GROUP/EXERCISE AND [place] PT DID NOT ATTEND MORNING GROUP THERAPY. PT STAYED IN HIS ROOM. PT IS SET TO BE DISCHARGED FROM THE UNIT THIS AFTERNOON.
[2019-04-08 12:39] VITALS: BP 138/72
--- NOTE | 2019-04-08 12:41 | NUR ---
PT REQUESTING PRN TYLENOL AND FLEXERIL D/T C/O BACK PAIN. ADMINISTERED AT THIS TIME PER ORDER.
--- NOTE | 2019-04-08 15:20 | NUR ---
PT STATES PRN TYLENOL AND FLEXERIL ARE EFFECTIVE. DENIES DISCOMFORT AT THIS TIME
--- NOTE | 2019-04-08 15:35 | NUR ---
PM GROUP PT ATTENDED AND PARTICIPATED IN AFTERNOON GROUP THERAPY. PT WAS TALKATIVE AND ON TASK. PT WILL BE DISCHARGED FROM THE UNIT THIS AFTERNOON
--- NOTE | 2019-04-08 18:36 | NUR ---
ALL DISCHARGE PAPERWORK REVIEWED WITH PT. PT'S DAUGHTER ON UNIT TO TAKE PT HOME VIA PRIVATE VEHICLE. PT DISCHARGED OFF UNIT AT THIS TIME VIA WHEELCHAIR, ESCORTED BY MHW AND DAUGHTER. ALL DISCHARGE PAPERWORK AND BELONGINGS SENT WITH PT. PT SIGNED FOR [employer] AND VISUALLY ACKNOWLEDGED RECEIPT OF ALL CORDS AND BAGS.
== END 2019-04-08 18:36 | disposition home or self-care (01) | DRG 885 ==
LOC: 3N 16:03
PROVIDERS: Counselor Professional; Registered Nurse; ADMIT Psychiatry & Neurology Psychiatry
DX: F33.9 Major depressive disorder, recurrent, unspecified (principal); E44.0 Moderate protein-calorie malnutrition; F43.10 Post-traumatic stress disorder, unspecified; I25.10 Atherosclerotic heart disease of native coronary artery without angina pectoris; J44.9 Chronic obstructive pulmonary disease, unspecified; I10 Essential (primary) hypertension; F17.210 Nicotine dependence, cigarettes, uncomplicated; K21.9 Gastro-esophageal reflux disease without esophagitis; Z86.73 Personal history of transient ischemic attack (TIA), and cerebral infarction without residual deficits; Z82.3 Family history of stroke; Z88.8 Allergy status to other drugs, medicaments and biological substances; Z79.899 Other long term (current) drug therapy; Z79.82 Long term (current) use of aspirin